=== PATIENT | male | born 1960 | race Caucasian/White ===

== ENCOUNTER 2019-11-23 09:10 | Emergency (ER) | payer BC ==
[~2019-11-23] VITALS: Ht 167.6 cm; Wt 81.7 kg
[2019-11-23] MEDS ORDERED: PRINIVIL5 MG PO (12:40)
--- NOTE | 2019-11-23 20:30 | EKG ---
[facility] [address] [facility] [place], [place] [address] Signed Sinus bradycardia Cannot rule out Anteroseptal infarct , age undetermined Abnormal ECG No previous ECGs available Confirmed by DEMETRIUS MCNEIL DO ([id number]) on 11/23/2019 8:30:06 PM Electronically Signed By: DEMETRIUS MCNEIL DO 11/23/19 2030 PATIENT NAME: JENSEN MARTIN MAVERICK Electrocardiogram DATE OF : 60 PHYSICIAN: DEMETRIUS MCNEIL DO REPORT #: [id number] REPORT IS CONFIDENTIAL AND NOT TO BE RELEASED WITHOUT AUTHORIZATION
== END 2019-11-23 15:48 | disposition home or self-care (01) ==
LOC: ED 09:10
DX: R42 Dizziness and giddiness (principal); F17.200 Nicotine dependence, unspecified, uncomplicated
CPT/HCPCS: 71045; 80053; 84484; 85025; 93005; 93010; 99284-25

== ENCOUNTER 2020-03-06 17:02 | Emergency (ER) | payer BC ==
[~2020-03-06] VITALS: Ht 167.6 cm; Wt 81.7 kg
[~2020-03-06 17:02] MED LIST: PRINIVIL5 MG PO
[2020-03-06] MEDS ORDERED: MECLIZINE HCL25 MG PO (18:23)
[2020-03-06] MEDS ORDERED: NASAL DECONGEST30 MG PO (18:23)
--- NOTE | 2020-03-07 14:25 | EKG ---
[facility] [address] [facility] [place] [address] Signed Sinus bradycardia Otherwise normal ECG When compared with ECG of 23-NOV-2019 11:14, Minimal criteria for Anteroseptal infarct are no longer present Confirmed by DEMETRIUS MCNEIL DO ([id number]) on 03/07/2020 2:25:33 PM Electronically Signed By: DEMETRIUS MCNEIL DO 03/07/20 1425 PATIENT NAME: JENSEN MARTIN Electrocardiogram DATE OF : 60 PHYSICIAN: DEMETRIUS MCNEIL DO REPORT #: [id number] REPORT IS CONFIDENTIAL AND NOT TO BE RELEASED WITHOUT AUTHORIZATION
== END 2020-03-06 18:55 | disposition home or self-care (01) ==
LOC: ED 17:02
DX: H83.02 Labyrinthitis, left ear (principal); F17.200 Nicotine dependence, unspecified, uncomplicated; Z79.899 Other long term (current) drug therapy
CPT/HCPCS: 80048; 84484; 85025; 93005; 93010; 99284-25; J1100

== ENCOUNTER 2021-06-01 07:30 | Day surgery (SDC) | payer BC ==
[~2021-06-01] VITALS: Ht 170.2 cm; Wt 78.7 kg
[~2021-06-01 07:30] MED LIST changes: +ALEVE220 MG PO; +MECLIZINE HCL25 MG PO; +NASAL DECONGEST30 MG PO; +NICOTINE LOZENGE4 MG BUCCAL
--- NOTE | 2021-06-01 09:49 | NUR ---
06/01/21 0949 Elena Sabillon 2383-PATIENT ARRIVED TO PACU ON 2L NC RR EVEN. PATIENT LAYING LEFT LATERAL. PATIENT REACTIVE TO VERBAL STIMULI VERY DROWSY SLIGHTLY OPENS EYES. IVF INFUSING. PATIENT REPOSITIONS SELF TO BACK AND EASILY FALLS ASLEEP. PASSING GAS.
--- NOTE | 2021-06-01 11:04 | NUR ---
AT BEDSIDE PT SITTING UP TALKING WITH . TAKING SIPS COFFEE AND WATER. WAS GIVEN LARGE AMT DRUGS DUE TO LARGE AMT OF POLYPS REMOVED. WILL ALLOW TO REST LONGER.
--- NOTE | 2021-06-01 13:08 | NUR ---
1125 AWAKE HAS DRANK CUP COFFEE AND WATER. VOIDS QS. STATES HES READY TO GO HOME. ASSISTED WITH DRESSING.
--- NOTE | 2021-06-02 07:26 | OR ---
[facility] [address] [place], [place] [address] Signed DATE OF OPERATION: 06/01/2021 SURGEON: Freddie Valdez MD PREOPERATIVE DIAGNOSIS: Guaiac-positive stool in January of 2020. POSTOPERATIVE DIAGNOSES: 1. Ipmgscg-fw-cmulupvb sigmoid diverticulosis. 2. 7 mm pedunculated polyp at 6 cm, left anterior position (tattoo/snare). 3. 10 to 12 mm pedunculated polyps x3 at 22 cm, snare. 4. 10 mm pedunculated polyp at 25 cm, snare. 5. 5 mm polyp at 12 cm. 6. 10 mm polyp at 25 cm, snare. 7. 5 mm polyp at 37 cm. 8. 5 mm polyp at base of cecum. 9. 7 mm sessile polyp on ileocecal valve, snare/hot biopsy. 10. 5 mm polyp at 55 cm. 11. 10 mm pedunculated polyp at 42 cm, snare. PROCEDURES: 1. Colonoscopy with snare polypectomy and hot biopsies. 2. Rigid proctoscopy. ESTIMATED BLOOD LOSS: None. INDICATIONS: Jensen is a 60-year-old gentleman, asked to see me for his initial colonoscopy. Apparently, he was guaiac negative in 2017. However, in January of this year, he was guaiac positive. He said once in a while he will see a little blood in a bowel movement. He thinks maybe he has hemorrhoids. He has no family history of colon cancer or polyps. In the office, I gave him a pamphlet on colonoscopy and we looked at that test together. He understands there is risk including, but not limited to gas bloating, crampy abdominal pain, bleeding, perforation requiring surgery, and missed diagnosis. He also understands the need for IV conscious sedation. He had expressed understanding and wished to proceed. PROCEDURE NOTE: Jensen was taken into our endoscopy suite and placed in the left lateral decubitus Electronically Signed By: FREDDIE VALDEZ MD 06/02/21 0726 PATIENT NAME: JENSEN MARTIN OPERATIVE REPORT DATE OF : 60 REPORT #: [id number] PHYSICIAN: FREDDIE VALDEZ MD PCP: ISRA CRALOS PA-C REPORT IS CONFIDENTIAL AND NOT TO BE RELEASED WITHOUT AUTHORIZATION [facility] [address] [place], [place] [address] Signed position. He was given a total of 15 mg of Versed and 300 mcg of fentanyl to cover the case mainly due to the length of time it took to remove all those polyps. He actually was not difficult to sedate. He tolerated the procedure quite well. A digital rectal exam had been performed and this was unremarkable. The adult colonoscope had been introduced and advanced all around to the cecum under direct visualization of the camera. He did take some extra sedation in order to get into the cecum itself along with some abdominal compression. His prep was quite excellent. We had taken pictures throughout for photodocumentation. The appendiceal orifice and ileocecal valve were easily visualized. His entire colon was only 75 cm long. The above-mentioned polyps were removed with the combination of hot biopsy forceps and the snare. Again, pictures were taken throughout for photodocumentation. He does have sigmoid diverticula. They were togihla-rr-cuftfvql in size, qmumryh-vb-bqjcdsno in number, and scattered about. Once in the rectum, the scope had been retroflexed and there was no additional pathology noted above the anal canal. We had placed a tattoo at that small polyp at 6 cm. We inserted the rigid proctoscope and we found it to be in the left slightly anterior position of the rectum. After this, the gas was allowed to escape and the rigid proctoscope was removed. Jensen tolerated the procedure quite well. RECOMMENDATIONS: I will see Jensen back in my office in 7 to 14 days to review his results. He might consider a shorter interval followup colonoscopy in 12 to 18 months, given the number of polyps that he has had. MD DORY Bansal/VALDEZL /[id number] cc: PADMINI Burkett Chart Filed Incomplete Freddie Valdez MD Copies: CHART FILED INCOMPLETE Electronically Signed By: FREDDIE VALDEZ MD 06/02/21 0726 PATIENT NAME: JENSEN MARTIN OPERATIVE REPORT DATE OF : 60 REPORT #: [id number] PHYSICIAN: FREDDIE VALDEZ MD PCP: ISRA CARLOS PA-C REPORT IS CONFIDENTIAL AND NOT TO BE RELEASED WITHOUT AUTHORIZATION [address] [address] Signed FREDDIE VALDEZ MD ~ Electronically Signed By: FREDDIE VALDEZ MD 06/02/21 0726 PATIENT NAME: JENSEN MARTIN MAVERICK OPERATIVE REPORT DATE OF : 60 REPORT #: [id number] PHYSICIAN: FREDDIE VALDEZ MD PCP: ISRA CARLOS PA-C REPORT IS CONFIDENTIAL AND NOT TO BE RELEASED WITHOUT AUTHORIZATION
--- NOTE | 2021-06-02 12:13 | PATH ---
[facility] [address] [facility] [place], [place] [address] Signed SPECIMEN(S): A RECTAL POLYP AT 6 CM SPECIMEN(S): B RECTAL BIOPSY AT 6 CM SPECIMEN(S): C SIGMOID POLYP AT 22 CM SPECIMEN(S): D SIGMOID POLYP AT 25 CM SPECIMEN(S): E RECTAL POLYP AT 12 CM SPECIMEN(S): F SIGMOID POLYP AT 35 CM SPECIMEN(S): G SIGMOID BIOPSY AT 22 CM SPECIMEN(S): H SIGMOID POLYP AT 37 CM SPECIMEN(S): I CECUM POLYP SPECIMEN(S): J ILEOCECAL VALVE POLYP SPECIMEN(S): K BIOPSY AT 55 CM SPECIMEN(S): L POLYP AT 42 CM SPECIMEN SOURCE: A. RECTAL POLYP AT 6 CM B. RECTAL BIOPSY AT 6 CM C. SIGMOID POLYP AT 22 CM D. SIGMOID POLYP AT 25 CM E. RECTAL POLYP AT 12 CM F. SIGMOID POLYP AT 35 CM G. SIGMOID BIOPSY AT 22 CM H. SIGMOID POLYP AT 37 CM I. CECUM POLYP J. ILEOCECAL VALVE POLYP K. BIOPSY AT 55 CM L. POLYP AT 42 CM CLINICAL HISTORY: Screening colonoscopy. Guaiac positive stools. MICROSCOPIC DESCRIPTION: Histologic sections of all submitted blocks are examined by light microscopy. These findings, together with the gross examination, support the pathologic diagnosis. FINAL PATHOLOGIC DIAGNOSIS: A. Rectum, polyp at 6 cm, polypectomy: - Fragments of tubular adenoma. - Negative for high-grade dysplasia or malignancy. B. Rectum, base of polyp at 6 cm, biopsy: - Rectal mucosa with no histopathologic abnormality. - Negative for dysplasia or malignancy. PATIENT NAME: JENSEN MARTIN PATHOLOGY DATE OF : 60 REPORT #: [id number] PHYSICIAN: PRADEEP ESPINOSA PCP: ISRA CARLOS PA-C REPORT IS CONFIDENTIAL AND NOT TO BE RELEASED WITHOUT AUTHORIZATION [facility] [address] [place], [place] [address] Signed C. Colon, sigmoid, polyp at 22 cm, polypectomy: - Fragments of tubular adenoma. - Negative for high-grade dysplasia or malignancy. D. Colon, sigmoid, polyp at 25 cm, polypectomy: - Tubular adenoma. - Negative for high-grade dysplasia or malignancy. E. Rectum, polyp at 12 cm, polypectomy: - Fragments of hyperplastic polyp. - Negative for dysplasia or malignancy. F. Colon, sigmoid, polyp at 35 cm, polypectomy: - Fragments of tubular adenoma. - Negative for high-grade dysplasia or malignancy. G. Colon, sigmoid, base of polyp at 22 cm, biopsy: - Cauterized fragment of superficial colorectal mucosa with no identifiable histopathologic abnormality. H. Colon, sigmoid, polyp at 37 cm, polypectomy: - Hyperplastic polyp. - Negative for dysplasia or malignancy. I. Colon, cecum, polyp, polypectomy: - Fragments of tubular adenoma. - Negative for high-grade dysplasia or malignancy. J. Colon, ileocecal valve, polyp, polypectomy: - Fragments of hyperplastic polyp. - Negative for dysplasia or malignancy. K. Colon, 55 cm, biopsy: - Tubular adenoma. - Negative for high-grade dysplasia or malignancy. L. Colon, polyp at 42 cm, polypectomy: - Tubular adenoma. - Negative for high-grade dysplasia or malignancy. NAL:cml:C2NR GROSS DESCRIPTION: Twelve specimens are received in twelve containers, labeled "RB." A. The specimen, labeled "RB, rectal polyp at 6 cm," is received in formalin and consists of three simpson soft tissue fragments that measure 0.3-0.6 cm in greatest dimension. The specimen is entirely submitted in cassette (A1). B. The specimen, labeled "RB, rectal biopsy at 6 cm, base of polyp," is received in formalin and consists of one simpson soft tissue fragment that measures 0.1 cm in greatest dimension. The specimen is PATIENT NAME: JENSEN MARTIN PATHOLOGY DATE OF : 60 REPORT #: [id number] PHYSICIAN: PRADEEP ESPINOSA PCP: ISRA CARLOS PA-C REPORT IS CONFIDENTIAL AND NOT TO BE RELEASED WITHOUT AUTHORIZATION [facility] [address] [place], [place] [address] Signed entirely submitted in cassette (B1). C. The specimen, labeled "RB, sigmoid colon polyp at 22 cm," is received in formalin and consists of three simpson soft tissue fragments that measure 0.3-1.5 cm in greatest dimension. Promotion Producer sections are submitted as follows: Cassette Summary: (C1) Two polyps, smaller inked, bigger serially sectioned (C2) One polyp, serially sectioned D. The specimen, labeled "RB, sigmoid colon polyp at 25 cm," is received in formalin and consists of one simpson soft tissue fragment that measures 1.2 cm in greatest dimension. It shows a white stalk that measures 0.5 cm in diameter. The stalk is inked and the specimen is sectioned. The specimen is entirely submitted in cassette (D1). E. The specimen, labeled "RB, rectum polyp at 12 cm," is received in formalin and consists of four simpson soft tissue fragments that measure 0.1-0.3 cm in greatest dimension. The specimen is entirely submitted in cassette (E1). F. The specimen, labeled "RB, sigmoid colon polyp at 35 cm," is received in formalin and consists of three simpson soft tissue fragments that measure 0.2-0.6 cm in greatest dimension. The specimen is entirely submitted in cassette (F1). G. The specimen, labeled "RB, sigmoid colon biopsy at 22 cm, base of the polyp," is received in formalin and consists of one simpson soft tissue fragment that measures 0.1 cm in greatest dimension. The specimen is entirely submitted in cassette (G1). H. The specimen, labeled "RB, sigmoid colon polyp at 27 cm," is received in formalin and consists of one simpson soft tissue fragment that measures 0.1 cm in greatest dimension. The specimen is entirely submitted in cassette (H1). I. The specimen, labeled "RB, cecum polyp," is received in formalin and consists of five simpson soft tissue fragments that measure 0.1-0.2 cm in greatest dimension. The specimen is entirely submitted in cassette (I1). J. The specimen, labeled "RB, ileocecal valve polyp," is received in formalin and consists of ten simpson soft tissue fragments that measure 0.1-0.3 cm in greatest dimension. The specimen is entirely submitted in cassette (J1). K. The specimen, labeled "RB, colon biopsy at 55 cm," is received in formalin and consists of one simpson soft tissue fragment that measures 0.1 cm in greatest PATIENT NAME: JENSEN MARTIN MAVERICK PATHOLOGY DATE OF : 60 REPORT #: [id number] PHYSICIAN: PRADEEP PATHOLOGY PCP: ISRA CARLOS PA-C REPORT IS CONFIDENTIAL AND NOT TO BE RELEASED WITHOUT AUTHORIZATION [facility] [address] [place], [place] [address] Signed dimension. The specimen is entirely submitted in cassette (K1). L. The specimen, labeled "RB, colon polyp at 42 cm," is received in formalin and consists of one simpson soft tissue fragment that measures 0.8 cm in greatest dimension. It shows a white stalk that measures 0.3 cm in diameter. The stalk is inked and the specimen is bisected. The specimen is entirely submitted in cassette (L1). JS (under the direct supervision of a pathologist) The Gross Description was prepared using a voice recognition system. The report was reviewed for accuracy; however, sound-alike word errors, addition and/or deletions may occur. If there is any question about this report, please contact Client Services. PERFORMING LABORATORY: The technical component was performed by [facility] [address] (Gluer Machine Operator: Lashon Sepulveda MD; CLIA# [id number]). [facility], [address] [address] (CLIA# [id number]). Diagnostician: Alyssa Hooker MD Pathologist Electronically Signed 06/02/2021 Copies: ~ PATIENT NAME: JENSEN MARTIN PATHOLOGY DATE OF : 60 REPORT #: [id number] PHYSICIAN: PRADEEP ESPINOSA PCP: ISRA CARLOS PA-C REPORT IS CONFIDENTIAL AND NOT TO BE RELEASED WITHOUT AUTHORIZATION
== END 2021-06-01 11:30 | disposition home or self-care (01) ==
LOC: DS 07:30 → OPS 07:30 → DS 09:00 → OPS 11:30 → DS 06-22 09:00
PROVIDERS: ATTEND Colon & Rectal Surgery
PROC: 3E0H8KZ Introduction of Other Diagnostic Substance into Lower GI, Via Natural or Artificial Opening Endoscopic (ICD-10-PCS; 2021-06-01)
PROC: 0DBE8ZX Excision of Large Intestine, Via Natural or Artificial Opening Endoscopic, Diagnostic (ICD-10-PCS; principal; 2021-06-01 09:00)
PROC: 0DBE8ZZ Excision of Large Intestine, Via Natural or Artificial Opening Endoscopic (ICD-10-PCS; 2021-06-01 09:00)
DX: D12.7 Benign neoplasm of rectosigmoid junction (principal); D12.0 Benign neoplasm of cecum; D12.5 Benign neoplasm of sigmoid colon; K57.30 Diverticulosis of large intestine without perforation or abscess without bleeding; I10 Essential (primary) hypertension; E78.5 Hyperlipidemia, unspecified; F17.210 Nicotine dependence, cigarettes, uncomplicated; Z96.642 Presence of left artificial hip joint; K62.1 Rectal polyp; Z20.822 Contact with and (suspected) exposure to COVID-19
CPT/HCPCS: 99153; G0500; J0690; J2250; J3010; J7121

== ENCOUNTER 2024-07-14 06:35 | Day surgery (SDC) | payer BC ==
[~2024-07-14] VITALS: Ht 167.6 cm; Wt 81.8 kg
[~2024-07-14 06:35] MED LIST changes: +ACETAMINOPHEN500 MG PO; +CEFUROXIME250 MG PO; +CVS FISH OIL 11 EAC2 PO; +DICLOFENAC SODI75 MG PO; +GABAPENTIN300 MG PO; +HYDROCODON-ACE1 EA10 PO; +LEVOFLOXACIN500 MG PO; +LISINOPRIL20 MG PO; +MIDAZOLAM HCL 5 MG/5 ML VIAL IV PRN; +OXYCODONE HCL5 MG PO; +SENNA LAX8.6 MG PO; +XARELTO10 MG PO; +fentaNYL citrate 100 MCG/2 ML VIAL IV PRN
[2024-07-14] MEDS ORDERED: MIDAZOLAM HCL 5 MG/5 ML VIAL ONE (06:39)
[2024-07-14] MEDS ORDERED: fentaNYL citrate 100 MCG/2 ML VIAL ONE (06:39)
[2024-07-14 06:50] VITALS: BP 127/69
[2024-07-14 06:51] VITALS: BP 127/69
[2024-07-14] MEDS ORDERED: ALEVE220 M1 PO (06:54)
[2024-07-14] MEDS ORDERED: CEFAZOLIN SODIUM 2 GM/20 ML SYR IV SCH (07:00)
[2024-07-14] MEDS ORDERED: LIDOCAINE HCL 1% 5 ML SDV INJ ONE (07:00)
[2024-07-14] MEDS ORDERED: IBLOOD GLUCOSE TEST STRIP 1 EA TEST VI PRN (07:00)
[2024-07-14] MEDS ORDERED: LACTATED RINGER'S 1,000 ML IV SCH (07:00)
--- NOTE | 2024-07-14 07:26 | NUR ---
VISITED DURING SPIRITUAL CARE ROUNDS. PT SUPPORTED BY IN ROOM; BOTH IN OVERALL GOOD SPIRITS, EXPRESSED CONFIDENCE IN CARE, DENIED ANY ANXIETY. NO CLEAR SIGNS OF ANXIETY PRESENT. STEEL FABRICATING SUPERVISOR PROVIDED SUPPORTIVE PRESENCE, HOSPITALITY, PRAYER, FACILITATED INTERACTION WITH THERAPY ANIMAL. PT AND EXPRESSED GRATITUDE.
--- NOTE | 2024-07-14 08:18 | NUR ---
07/14/24 0818 Elena Sabillon 0886-PATIENT ARRIVED TO PACU ON 2L NC RR EVEN. PATIENT LAYING LEFT LATERAL ABDOMEN SOFT. IVF INFUSING. PATIENT REACTIVE TO VERBAL STIMULI DENIES PAIN OR NAUSEA. PASSING GAS. PATIENT EASILY DOZES BACK TO SLEEP.
[2024-07-14 08:56] VITALS: BP 112/76
--- NOTE | 2024-07-14 09:43 | OR ---
[facility] [address] [place], [place] [address] Signed DATE OF OPERATION: 07/14/2024 SURGEON: Freddie Valdez MD PREOPERATIVE DIAGNOSES: 1. Personal history of colonic polyps in 2020 at age 60. 2. Rectal tattoo at 6 cm in the left anterior position. 3. Diverticulosis. POSTOPERATIVE DIAGNOSES: 1. Rectal tattoo at 6 cm. 2. 5 mm polypoid lesion at 50 cm in left colon. 3. 4 mm polyp at 18 cm at rectosigmoid junction. 4. 7 mm polyp at 15 cm in rectum (snare). 5. 4 mm polyp at 7 cm in rectum. 6. Minimal sigmoid diverticulosis. PROCEDURE: Colonoscopy with hot biopsy and snare polypectomy. ESTIMATED BLOOD LOSS: None. INDICATIONS: Jensen is a 63-year-old gentleman, asked to see me for a followup colonoscopy. He had guaiac positive stool back in 2019. He completed his colonoscopy in early 2020. He had seven tubular adenomatous polyps removed along with three hyperplastic polyps. We left a tattoo in the rectum at 6 cm in the anterior left position. He also had diverticulosis. The polyps were all 10 mm or less in size. He was sedated and passed the camera, but we used 15 mg of Versed and 300 mcg of fentanyl because the case was so long. We did ask him to follow up in one year. However, he had to have his hip and knee replaced. He is now returning for his followup colonoscopy. He has no lower GI complaints. There is no family history of colon cancer or polyps. He told me today he uses marijuana about once or twice a month with his friends. He said he really does not smoke that much. In the office I had given him a pamphlet on colonoscopy. We had reviewed the nature of the test. There is risk including, but not limited to gas bloating, crampy abdominal pain, bleeding, perforation requiring surgery, and missed diagnosis. We also reviewed the written instructions for the bowel prep line by line. He understands an adult person has to take him home afterwards. He said usually that would be his . He had expressed understanding and wished to proceed. Electronically Signed By: FREDDIE VALDEZ MD 07/14/24 0943 PATIENT NAME: JENSEN MARTIN OPERATIVE REPORT DATE OF : 60 REPORT #: [id number] PHYSICIAN: FREDDIE VALDEZ MD PCP: ISRA CARLOS PA-C REPORT IS CONFIDENTIAL AND NOT TO BE RELEASED WITHOUT AUTHORIZATION [facility] [address] [place], [place] [address] Signed PROCEDURE IN DETAIL: Jensen was taken into our endoscopy suite and placed in the left lateral decubitus position. He was given divided doses of 6 mg of Versed and 150 mcg of fentanyl to cover the case. A digital rectal exam was performed. He had no external hemorrhoids. He had good sphincter tone. There were no masses. He has an indurated prostate. The adult colonoscope was introduced and advanced all the way around into the cecum under direct visualization of camera without difficulty. His prep was quite good. We could easily see the appendiceal orifice and ileocecal valve. The scope was then slowly withdrawn. We removed the above lesions with the help of hot biopsy forceps and we used the snare at 15 cm in the rectum. He does have some diverticula in the sigmoid colon. They were moderate in size, few in number and scattered about. The scope was then retroflexed in the rectum. There was no additional pathology above the anal canal. We did see the tattoo at 6 cm as well. No evidence of any recurrent polyp in that area. After this, the gas was suctioned out, colonoscope removed. Jensen tolerated the procedure quite well. RECOMMENDATIONS: I will see Jensen back in my office in 7 to 14 days to review his results. Freddie Valdez MD ALB/MODL /[id number] cc: HIGINIO Casillas MD Copies: FREDDIE VALDEZ MD ~ Electronically Signed By: FREDDIE VALDEZ MD 07/14/24 0943 PATIENT NAME: JENSEN MARTIN OPERATIVE REPORT DATE OF : 60 REPORT #: [id number] PHYSICIAN: FREDDIE VALDEZ MD PCP: ISRA CARLOS PA-C REPORT IS CONFIDENTIAL AND NOT TO BE RELEASED WITHOUT AUTHORIZATION
--- NOTE | 2024-07-16 12:47 | PATH ---
[facility] [address] [place], [place] [address] Signed SPECIMEN(S): A DESCENDING COLON AT 50 CM SPECIMEN(S): B DISTAL SIGMOID COLON AT 15 CM SPECIMEN(S): C RECTUM AT 12 CM SPECIMEN(S): D RECTUM AT 7 CM SPECIMEN SOURCE: A. DESCENDING COLON AT 50 CM B. DISTAL SIGMOID COLON AT 15 CM C. RECTUM AT 12 CM D. RECTUM AT 7 CM CLINICAL HISTORY: History of colon polyps, diverticulosis. FINAL PATHOLOGIC DIAGNOSIS: A. Descending colon at 50 cm: - Tubular adenoma (one fragment). B. Distal sigmoid colon at 15 cm: - Hyperplastic polyp (one fragment). C. Rectum at 12 cm: - Tubular adenoma (one fragment). - Hyperplastic polyp (one fragment). D. Rectum at 7 cm: - Tubular adenoma (one fragment). JVR:jaiden MICROSCOPIC EXAMINATION: Histologic sections of all submitted blocks are examined by light microscopy. These findings, together with the gross examination, support the pathologic diagnosis. GROSS DESCRIPTION: A. The specimen, labeled and designated "Rodger, descending colon at 50 cm," is received in formalin and consists of one simpson soft tissue fragment, 0.2 cm. Entirely submitted in (A1). B. The specimen, labeled and designated "Rodger, distal sigmoid colon at 15 cm," is received in formalin and consists of one simpson soft tissue fragment, 0.2 cm. Entirely submitted in (B1). C. The specimen, labeled and designated "Rodger, rectum at 12 cm," is received in formalin and consists of two simpson soft tissue fragments, ranging from 0.3-0.7 cm. Entirely submitted in (C1). PATIENT NAME: JENSEN MARTIN PATHOLOGY DATE OF : 60 REPORT #: [id number] PHYSICIAN: PRADEEP ESPINOSA PCP: ISRA CARLOS PA-C REPORT IS CONFIDENTIAL AND NOT TO BE RELEASED WITHOUT AUTHORIZATION [facility] [address] [facility] [place] [address] Signed D. The specimen, labeled and designated "Rodger rectum at 7 cm," is received in formalin and consists of one simpson soft tissue fragment, 0.1 cm. Entirely submitted in (D1). VB (under the direct supervision of a pathologist) The Gross Description was prepared using a voice recognition system. The report was reviewed for accuracy; however, sound-alike word errors, addition and/or deletions may occur. If there is any question about this report, please contact Client Services. PERFORMING LABORATORY: Technical component was performed by [facility], [address] [place] [id number] (CLIA# [id number]). Professional interpretation was performed by [facility], [address] [place] [id number] (CLIA#: [id number]). Diagnostician: David Mcgowan MD Pathologist Electronically Signed 07/16/2024 Copies: ~ PATIENT NAME: JENSEN MARTIN PATHOLOGY DATE OF : 60 REPORT #: [id number] PHYSICIAN: PRADEEP ESPINOSA PCP: ISRA CARLOS PA-C REPORT IS CONFIDENTIAL AND NOT TO BE RELEASED WITHOUT AUTHORIZATION
== END 2024-07-14 09:00 | disposition home or self-care (01) ==
LOC: DS 06:35
PROVIDERS: ATTEND Colon & Rectal Surgery
PROC: 0DBN8ZZ Excision of Sigmoid Colon, Via Natural or Artificial Opening Endoscopic (ICD-10-PCS; 2024-07-14)
PROC: 0DBP8ZZ Excision of Rectum, Via Natural or Artificial Opening Endoscopic (ICD-10-PCS; 2024-07-14)
PROC: 0DBG8ZZ Excision of Left Large Intestine, Via Natural or Artificial Opening Endoscopic (ICD-10-PCS; principal; 2024-07-14 07:30)
DX: D12.4 Benign neoplasm of descending colon (principal); D12.8 Benign neoplasm of rectum; K57.30 Diverticulosis of large intestine without perforation or abscess without bleeding; I10 Essential (primary) hypertension; E78.5 Hyperlipidemia, unspecified; I25.10 Atherosclerotic heart disease of native coronary artery without angina pectoris; F17.210 Nicotine dependence, cigarettes, uncomplicated; M19.90 Unspecified osteoarthritis, unspecified site; Z79.899 Other long term (current) drug therapy
CPT/HCPCS: 99153; G0500; J0690; J2250; J3010; J7121